=== PATIENT | male | born 1980 ===

== ENCOUNTER 2020-10-09 23:19 | Emergency (ER) | payer MEDICAID ==
[~2020-10-09] VITALS: Ht 175.3 cm; Wt 86.4 kg
[2020-10-09 23:26] VITALS: BP 185/115
== END 2020-10-10 02:46 | disposition left against medical advice (07) ==
LOC: ER 23:20
DX: K08.89 Other specified disorders of teeth and supporting structures (principal); Z53.21 Procedure and treatment not carried out due to patient leaving prior to being seen by health care provider